=== PATIENT | male | born 1980 | race African-American/Black ===

== ENCOUNTER 2019-01-14 16:57 | Emergency (ER) | payer OTHER, MEDICAID, SELFPAY ==
[2019-01-14 16:58] VITALS: BP 105/65; PULSE 59; RESP 18; TEMP 36.6; O2SAT 100; BMI 19.1
--- NOTE | 2019-01-14 17:12 | ED.VISSUMM ---
- ER Visit Summary Date of Service: 01/14/19 Chief Complaint: Bilateral lower extremity pain History of Present Illness: The patient is a 38 M presenting with bilateral lower extremity pain. He states he has been having left knee pain and a tingling sensation around his knee. He has similar complaints of the right knee but he states it is not as severe. This has been intermittent for several months. He denies any injury. He denies back pain or fever. Denies bowel or bladder incontinence. Denies weakness. He denies any new medications. Denies other complaints. Physical Examination: Vitals are stable. Patient is afebrile. Alert no acute distress. HEENT exam is unremarkable. Neck is supple. Lungs are clear and equal bilaterally. Heart is regular rate and rhythm. Extremities mild left anterior knee tenderness with active full range of motion. No erythema or warmth. Normal distal pulses. Skin is warm and dry. No focal neurologic deficit. Normal strength and sensation. Remainder of exam is unremarkable. Emergency Department Course and Treatment: Patient declined IM medication. He was given Naprosyn. Basic metabolic panel shows glucose 64. Patient was able to tolerate p.o. in the emergency department. Right knee xray shows no evidence for acute fracture. Findings which may be consistent with bone infarcts involving the distal femoral and proximal tibial shafts or possible fibrous dysplasia. Left knee xray shows nonspecific densities within the distal femoral and proximal tibial shaft most likely representing bone infarcts. Discussed with Dr Whatley and patient will be seen as an outpatient. Given prescription for Naprosyn. Advised to return to the ED for worsening complaints. Disposition: Discharge home Impression: Bilateral knee pain This note was generated with [employer] dictation software. It may contain incorrect words, spelling, and punctuation that were not noted in review of the chart prior to signing ED Disposition - Plan for ED Patient: Instructions: KNEE PAIN, Uncertain Cause Prescriptions: Naproxen [Naprosyn] 500 mg PO BID PRN #20 tab Prescription Printed Referrals: Dot Mccray DO [STAFF PHYSICIAN] -
[2019-01-14] MEDS: Naproxen 250 MG Tablet 500 MG PO (17:36)
--- NOTE | 2019-01-14 17:40 | RAD_ITS ---
STUDY: X-RAY - LEFT KNEE REASON FOR EXAM: Male, 38 years old. Pain TECHNIQUE: 3 view(s) of the knee. COMPARISON: None. FINDINGS: Predominantly sclerotic density within the distal femoral metaphysis extending to the epiphyses and similar-appearing density within the medial tibial metaphysis most likely representing bone infarcts.. Normal visualized proximal tibia and fibula. Normal proximal tibiofibular articulation. Normal medial femorotibial compartment. Normal lateral femorotibial compartment. Normal patellofemoral articulation. The soft tissue structures are unremarkable. RAD/Knee 4 or More Views IMPRESSION: Nonspecific densities within the distal femoral and proximal tibial shaft most likely representing bone infarcts. However clinical correlation recommended Electronically Signed: Jesus Daniel MD at 18:29 EDT , Service support ,
--- NOTE | 2019-01-14 17:40 | RAD_ITS ---
STUDY: X-RAY - RIGHT KNEE REASON FOR EXAM: Male, 38 years old. Pain in both knees TECHNIQUE: 3 view(s) of the knee. COMPARISON: None. FINDINGS: There are diffuse sclerotic densities seen within the distal femoral metaphyses extending to the epiphyses and within the proximal tibial metaphysis. Differential diagnosis includes bone infarcts or fibrous dysplasia. Neoplasm not entirely excluded Normal visualized proximal tibia and fibula. Normal proximal tibiofibular articulation. Normal medial femorotibial compartment. Normal lateral femorotibial compartment. Normal patellofemoral articulation. The soft tissue structures are unremarkable. RAD/Knee 4 or More Views IMPRESSION: No evidence for acute fracture. Findings which may be consistent with bone infarcts involving the distal femoral and proximal tibial shafts or possible fibrous dysplasia. Electronically Signed: Jesus Daniel MD at 18:12 EDT , Service support ,
[2019-01-14 17:48] LABS: Anion Gap 4 (5-15); BUN 13 mg/dL (7-18); BUN/Creat Ratio 11.8 RATIO (10-20); Calcium,Total 9.2 mg/dL (8.5-10.1); Chloride 106 mmol/L (98-107); EST Glomerular Filtration Rate 81 mL/min (>60); Est Glom Filt Rate - Afr Amer 97 mL/min (>60); Estimated Creatinine Clearance 70.38 ml/min; Glucose 64 mg/dL (74-106); Potassium 3.6 mmol/L (3.5-5.1); Sodium Level 140 mmol/L (136-145)
--- NOTE | 2019-01-14 19:12 | ED.DEP ---
ED Disposition - Plan for ED Patient: Instructions: KNEE PAIN, Uncertain Cause Prescriptions: Naproxen [Naprosyn] 500 mg PO BID PRN #20 tablet Referrals: Dot Mccray DO [STAFF PHYSICIAN] -
== END 2019-01-14 19:22 | disposition home or self-care (01) ==
PROVIDERS: Emergency Provider Emergency Medicine
DX: M25.561 Pain in right knee (principal); M25.562 Pain in left knee; Z72.0 Tobacco use
CPT/HCPCS: 73564; 80048; 99283